=== PATIENT | male | born 1975 | race Caucasian/White ===

== ENCOUNTER 2017-12-07 19:21 | Inpatient (IN) | payer BC ==
[~2017-12-07] VITALS: Ht 188 cm; Wt 140.3 kg
[2017-12-08 00:21] VITALS: BP 158/83
[2017-12-08 00:22] LABS: ALBUMIN 4.1 g/dL (3.4-5.0); ALKALINE PHOSPHATASE 60 U/L (46-116); ALT/SGPT 35 U/L (16-63); AST/SGOT 22 U/L (15-37); BILIRUBIN TOTAL 0.3 mg/dL (0.20-1.00); CALCIUM 8.9 mg/dL (8.5-10.1); CARBON DIOXIDE 27.1 mmol/L (21-32); CHLORIDE SERUM 104 mmol/L (98-107); CREATININE SERUM 1.1 mg/dL (0.7-1.3); GFR1 > 60 mL/min; GLUCOSE SERUM 184 mg/dL (74-106); POTASSIUM SERUM 4.3 mmol/L (3.5-5.1); SODIUM SERUM 139 mmol/L (136-145); TOTAL PROTEIN, SERUM 7.7 g/dL (6.4-8.2)
[2017-12-08 00:23] VITALS: Ht 188 cm; Wt 140.3 kg
[2017-12-08 00:32] LABS: T3 TOTAL 1.08 ng/mL
[2017-12-08 00:40] LABS: AMYLASE 40 U/L (25-115); CHOLESTEROL 199 mg/dL (<200); LIPASE 98 IU/L (73-393); MAGNESIUM 2.2 mg/dL (1.8-2.4); PHOSPHOROUS 3.5 mg/dL (2.5-4.9)
[2017-12-08 00:41] LABS: CHOLESTEROL/HDL RATIO 6.2; HDL CHOLESTEROL 32 mg/dL (40-60); TRIGLYCERIDES 410 mg/dL (<150)
[2017-12-08 00:47] LABS: FREE T4 0.84 ng/dL (0.76-1.46); FREE THYROXINE INDEX 1.7 ug/dL (1.4-4.5); T4(THYROXINE) 5.7 ug/dL (4.7-13.3)
[2017-12-08 00:49] LABS: BASOPHIL % 0.5 % (0-2); PLATELET COUNT 267 x10^3mcL (130-400); RED CELL DISTRIBUTION WIDTH 14.2 % (11.5-14.5)
[2017-12-08 06:05] VITALS: BP 144/76
[2017-12-08 09:59] VITALS: BP 114/68
[2017-12-08 15:15] LABS: microscopic required? NO
[2017-12-08 15:24] LABS: UA SPECIFIC GRAVITY >=1.030 (1.005-1.035); urine erythrocyte NEGATIVE (NEGATIVE)
[2017-12-08 15:32] LABS: AMPHETAMINE QUAL UR NONE DETECTED (See below)
[2017-12-08 16:49] VITALS: BP 117/70
[2017-12-08 19:10] VITALS: BP 139/72
[2017-12-09 05:39] VITALS: BP 137/87
[2017-12-09 06:34] LABS: BASOPHIL % 0.3 % (0-2); PLATELET COUNT 189 x10^3mcL (130-400)
[2017-12-09 07:00] LABS: CALCIUM 8.3 mg/dL (8.5-10.1); CARBON DIOXIDE 30.8 mmol/L (21-32); CHLORIDE SERUM 105 mmol/L (98-107); CREATININE SERUM 0.8 mg/dL (0.7-1.3); GFR1 > 60 mL/min; GLUCOSE SERUM 113 mg/dL (74-106); MAGNESIUM 2.4 mg/dL (1.8-2.4); PHOSPHOROUS 3.2 mg/dL (2.5-4.9); POTASSIUM SERUM 4.1 mmol/L (3.5-5.1); SODIUM SERUM 140 mmol/L (136-145)
[2017-12-09 10:14] VITALS: BP 149/87
[2017-12-09 17:20] VITALS: BP 136/98
[2017-12-09 20:37] VITALS: BP 129/60
[2017-12-10 05:07] VITALS: BP 158/82
[2017-12-10 09:20] VITALS: BP 114/78
[2017-12-10] MEDS ORDERED: NOR10T PO (14:22)
[2017-12-10 15:02] VITALS: BP 114/78
== END 2017-12-10 16:20 | disposition home or self-care (01) | DRG 562 ==
LOC: ED 19:21 → MU 23:19
PROVIDERS: Family Medicine; Internal Medicine; Neuromusculoskeletal Medicine, Sports Medicine
PROC: 0PSFXZZ Reposition Right Humeral Shaft, External Approach (ICD-10-PCS; principal; 2017-12-09 12:30)
DX: S42.491A Other displaced fracture of lower end of right humerus, initial encounter for closed fracture (principal); N17.0 Acute kidney failure with tubular necrosis; Z68.41 Body mass index [BMI] 40.0-44.9, adult; E11.65 Type 2 diabetes mellitus with hyperglycemia; S00.83XA Contusion of other part of head, initial encounter; F12.10 Cannabis abuse, uncomplicated; F17.210 Nicotine dependence, cigarettes, uncomplicated; W17.89XA Other fall from one level to another, initial encounter; D72.829 Elevated white blood cell count, unspecified; Y93.51 Activity, roller skating (inline) and skateboarding; Y92.89 Other specified places as the place of occurrence of the external cause; Z83.3 Family history of diabetes mellitus
CPT/HCPCS: 84439; J1170; J1885; J2175; J2250; J2270; J2405; J2704; J3010; J7030; J7120; Q0092; Q0162